=== PATIENT | female | born 1970 ===

== ENCOUNTER 2018-08-26 12:39 | Emergency (ER) | payer OTHER ==
[~2018-08-26] VITALS: Ht 162.6 cm; Wt 113.4 kg
[~2018-08-26 12:39] MED LIST: EXFORGE 10-1601 TAB; SYNTHROID75 MCG
== END 2018-08-26 16:07 | disposition home or self-care (01) ==
LOC: ER 12:39
DX: B34.9 Viral infection, unspecified (principal)

== ENCOUNTER → 2019-10-31 09:51 | Outpatient (CLI) | payer OTHER | END | disposition home or self-care (01) | LOC: LAB 09:51 | PROVIDERS: ATTEND Internal Medicine Cardiovascular Disease | DX: E03.8 Other specified hypothyroidism (principal); E11.9 Type 2 diabetes mellitus without complications; E78.2 Mixed hyperlipidemia; I10 Essential (primary) hypertension ==